=== PATIENT | male | born 1965 | race Caucasian/White ===

== ENCOUNTER 2017-09-24 13:12 | Inpatient (IN) | payer OTHER ==
[2017-09-24 13:44] LABS: ADD MAN DIFF? NO
[2017-09-24 13:46] LABS: BASOPHIL # 0.1 10^3/ul (0.0-0.1); BASOPHILS % 0.8 % (0.0-2.0); EOSINOPHILS # 0.7 10^3/ul (0.0-0.5); EOSINOPHILS % 9.8 % (0.0-7.0); HEMATOCRIT 36.2 % (42.0-52.0); HEMOGLOBIN 11.7 g/dl (14.0-18.0); LYMPHOCYTES # 1.7 10^3/ul (0.8-2.9); LYMPHOCYTES % 23.2 % (15.0-51.0); MEAN CORPUSCULAR HEMOGLOBIN 33.1 pg (29.0-33.0); MEAN CORPUSCULAR HGB CONC 32.3 g/dl (32.0-37.0); MEAN CORPUSCULAR VOLUME 102.3 fl (82.0-101.0); MEAN PLATELET VOLUME 11.5 fl (7.4-10.4); MONOCYTE # 0.5 10^3/ul (0.3-0.9); MONOCYTES % 6.7 % (0.0-11.0); NEUTROPHIL # 4.2 10^3/ul (1.6-7.5); NEUTROPHILS % 59.4 % (39.0-77.0); PLATELET COUNT 206 10^3/UL (140-415); RED BLOOD COUNT 3.54 10^6/ul (4.70-6.10); RED CELL DISTRIBUTION WIDTH 17.5 % (11.5-14.5)
[2017-09-24 13:46] LABS: WHITE BLOOD COUNT 7.2 10^3/ul (4.8-10.8)
[2017-09-24 14:03] LABS: ANION GAP 21 (8-16); BLOOD UREA NITROGEN 76 mg/dl (7-20); CALCIUM 7.3 mg/dl (8.4-10.2); CARBON DIOXIDE 27 mmol/L (21-31); CHLORIDE 100 mmol/L (97-110); CREATININE 13.18 mg/dl (0.61-1.24); GLUCOSE 126 mg/dl (70-220); MAGNESIUM 2.4 mg/dl (1.7-2.5); PHOSPHORUS 8.1 mg/dl (2.5-4.9); SODIUM 142 mmol/L (135-144)
[2017-09-24 14:08] LABS: POTASSIUM 6.3 mmol/L (3.5-5.1); PROTIME 14.4 Sec (11.9-14.9); PT RATIO 1.1
[2017-09-24 14:09] LABS: PARTIAL THROMBOPLASTIN TIME 30.9 Sec (25.0-35.0)
[2017-09-24] MEDS ORDERED: DEXTROSE 50% 50 ML SYRINGE IV (14:30)
[2017-09-24] MEDS: FUROSEMIDE 40 MG INJ IV (14:32)
[2017-09-24] MEDS: DEXTROSE 50% 50 ML SYRINGE IV (14:32)
[2017-09-24] MEDS: INSULIN REGULAR, HUMAN 100 UNIT/1 ML 3ML VIAL IVP (14:43)
[2017-09-24] MEDS ORDERED: morphine 2 MG INJ IV (15:00)
[2017-09-24] MEDS ORDERED: ACETAMINOPHEN 325 MG TAB PO (15:00)
[2017-09-24] MEDS ORDERED: DOCUSATE SODIUM 100 MG CAP PO (15:00)
[2017-09-24] MEDS ORDERED: NACL 0.9% 3 ML SYG IV (15:00)
[2017-09-24] MEDS ORDERED: MAGNESIUM HYDROXIDE 30ML CUP PO (15:00)
[2017-09-24] MEDS ORDERED: LORAZEPAM 0.5 MG TAB PO (15:00)
[2017-09-24] MEDS ORDERED: hydrALAzine 20 MG INJ IV (15:00)
[2017-09-24] MEDS ORDERED: HYDROCODONE/APAP (5/325) TAB PO (15:00)
[2017-09-24] MEDS ORDERED: ONDANSETRON 4 MG INJ IV (15:00)
[2017-09-24] MEDS ORDERED: BISACODYL (EC) 5 MG TAB PO (15:00)
[2017-09-24] MEDS: ALBUTEROL 0.5% (NEB) 2.5 MG/0.5 ML AMP INH (15:47)
[2017-09-24] MEDS: CALCIUM ACETATE 667 MG CAP PO (17:52)
[2017-09-25] MEDS: GABAPENTIN 100 MG CAP PO ×4 (00:25→22:09)
[2017-09-25] MEDS: ATORVASTATIN 20 MG TAB PO ×2 (00:26→22:08)
[2017-09-25] MEDS: METOPROLOL 50 MG TAB PO ×3 (00:28→22:09)
[2017-09-25 06:45] LABS: ADD MAN DIFF? NO
[2017-09-25 06:51] LABS: BASOPHILS % 0.5 % (0.0-2.0); EOSINOPHILS # 0.4 10^3/ul (0.0-0.5); EOSINOPHILS % 7.2 % (0.0-7.0); HEMOGLOBIN 11.1 g/dl (14.0-18.0); LYMPHOCYTES # 1.3 10^3/ul (0.8-2.9); LYMPHOCYTES % 22.7 % (15.0-51.0); MEAN CORPUSCULAR HEMOGLOBIN 33.3 pg (29.0-33.0); MEAN CORPUSCULAR HGB CONC 32.6 g/dl (32.0-37.0); MEAN CORPUSCULAR VOLUME 102.1 fl (82.0-101.0); MONOCYTE # 0.5 10^3/ul (0.3-0.9); MONOCYTES % 8.4 % (0.0-11.0); NEUTROPHIL # 3.5 10^3/ul (1.6-7.5); NEUTROPHILS % 60.8 % (39.0-77.0); PLATELET COUNT 165 10^3/UL (140-415); RED BLOOD COUNT 3.33 10^6/ul (4.70-6.10); RED CELL DISTRIBUTION WIDTH 17.7 % (11.5-14.5)
[2017-09-25 06:51] LABS: WHITE BLOOD COUNT 5.7 10^3/ul (4.8-10.8)
[2017-09-25 07:10] LABS: ALANINE AMINOTRANSFERASE 18 IU/L (13-69); ALBUMIN 4.2 g/dl (3.3-4.9); ALBUMIN/GLOBULIN RATIO 1.31; ALKALINE PHOSPHATASE 83 IU/L (42-121); ANION GAP 14 (8-16); ASPARTATE AMINO TRANSFERASE 10 IU/L (15-46); BILIRUBIN,INDIRECT 0.3 mg/dl (0-1.1); BILIRUBIN,TOTAL 0.3 mg/dl (0.2-1.3); BLOOD UREA NITROGEN 36 mg/dl (7-20); CALCIUM 7.8 mg/dl (8.4-10.2); CARBON DIOXIDE 30 mmol/L (21-31); CHLORIDE 102 mmol/L (97-110); CREATININE 7.93 mg/dl (0.61-1.24); GLUCOSE 99 mg/dl (70-220); MAGNESIUM 2.1 mg/dl (1.7-2.5); POTASSIUM 5.9 mmol/L (3.5-5.1); SODIUM 140 mmol/L (135-144); TOTAL PROTEIN 7.4 g/dl (6.1-8.1)
[2017-09-25] MEDS: CALCIUM ACETATE 667 MG CAP PO ×3 (08:19→18:05)
[2017-09-25] MEDS: NIFEdipine (XL) 30 MG TAB PO ×2 (08:20→22:09)
[2017-09-25] MEDS: ASPIRIN 81 MG TAB PO (08:21)
[2017-09-25] MEDS: FUROSEMIDE 40 MG TAB PO (08:22)
[2017-09-25] MEDS: NA POLYST SULFON 15 GM/60 ML BTL PO (08:22)
[2017-09-25 10:11] LABS: POTASSIUM 5.5 mmol/L (3.5-5.1)
[2017-09-25] MEDS ORDERED: morphine LIQ (10 MG/5 ML) CUP PO (15:30)
[2017-09-25 16:00] LABS: OCCULT BLOOD STOOL NEGATIVE (NEGATIVE)
[2017-09-25] MEDS: HEPARIN 1000 UNITS/ML 10 ML INJ CATHETER (19:09)
[2017-09-25 20:04] LABS: POTASSIUM 4.1 mmol/L (3.5-5.1)
[2017-09-26] MEDS: CALCIUM ACETATE 667 MG CAP PO ×2 (08:59→12:59)
[2017-09-26] MEDS: NIFEdipine (XL) 30 MG TAB PO (09:00)
[2017-09-26] MEDS: FUROSEMIDE 40 MG TAB PO (09:00)
[2017-09-26] MEDS: METOPROLOL 50 MG TAB PO (09:00)
[2017-09-26] MEDS: ASPIRIN 81 MG TAB PO (09:00)
[2017-09-26] MEDS: GABAPENTIN 100 MG CAP PO ×2 (09:00→13:01)
[2017-09-26 09:27] LABS: ADD MAN DIFF? NO
[2017-09-26 09:29] LABS: WHITE BLOOD COUNT 5.5 10^3/ul (4.8-10.8)
[2017-09-26 09:29] LABS: BASOPHIL # 0.1 10^3/ul (0.0-0.1); BASOPHILS % 0.9 % (0.0-2.0); EOSINOPHILS # 0.5 10^3/ul (0.0-0.5); EOSINOPHILS % 8.6 % (0.0-7.0); HEMATOCRIT 33.4 % (42.0-52.0); HEMOGLOBIN 10.7 g/dl (14.0-18.0); LYMPHOCYTES # 1.5 10^3/ul (0.8-2.9); MEAN CORPUSCULAR HEMOGLOBIN 33.1 pg (29.0-33.0); MEAN CORPUSCULAR VOLUME 103.4 fl (82.0-101.0); MEAN PLATELET VOLUME 11.8 fl (7.4-10.4); MONOCYTE # 0.6 10^3/ul (0.3-0.9); MONOCYTES % 10.4 % (0.0-11.0); NEUTROPHIL # 2.9 10^3/ul (1.6-7.5); NEUTROPHILS % 52.7 % (39.0-77.0); PLATELET COUNT 175 10^3/UL (140-415); RED BLOOD COUNT 3.23 10^6/ul (4.70-6.10); RED CELL DISTRIBUTION WIDTH 17.5 % (11.5-14.5)
[2017-09-26 09:39] LABS: HEMOGLOBIN A1C 5.5 % (0-5.9)
[2017-09-26 09:58] LABS: ANION GAP 14 (8-16); BLOOD UREA NITROGEN 34 mg/dl (7-20); CARBON DIOXIDE 28 mmol/L (21-31); CHLORIDE 104 mmol/L (97-110); CREATININE 6.95 mg/dl (0.61-1.24); GLUCOSE 95 mg/dl (70-220); PHOSPHORUS 5.8 mg/dl (2.5-4.9); POTASSIUM 4.7 mmol/L (3.5-5.1); SODIUM 141 mmol/L (135-144)
== END 2017-09-26 14:08 | disposition home or self-care (01) | DRG 640 ==
LOC: E/R 13:12 → MS4 14:17
PROC: 5A1D70Z Performance of Urinary Filtration, Intermittent, Less than 6 Hours Per Day (ICD-10-PCS; principal; 2017-09-24)
DX: E87.5 Hyperkalemia (principal); N18.6 End stage renal disease; I12.0 Hypertensive chronic kidney disease with stage 5 chronic kidney disease or end stage renal disease; D63.1 Anemia in chronic kidney disease; E83.39 Other disorders of phosphorus metabolism; E78.5 Hyperlipidemia, unspecified; Z99.2 Dependence on renal dialysis
CPT/HCPCS: 36415; 80048; 80053; 82270; 82962; 83036; 83735; 84100; 84132; 85025; 85610; 85730; 90935; 93005; 94664; 96374; 96375; 99291-25

== ENCOUNTER 2017-10-22 19:42 | Emergency (ER) | payer OTHER ==
[2017-10-22 21:12] LABS: ADD MAN DIFF? NO
[2017-10-22 21:14] LABS: BASOPHILS % 0.3 % (0.0-2.0); EOSINOPHILS # 0.5 10^3/ul (0.0-0.5); EOSINOPHILS % 3.9 % (0.0-7.0); HEMATOCRIT 34.4 % (42.0-52.0); HEMOGLOBIN 11.3 g/dl (14.0-18.0); LYMPHOCYTES # 1.4 10^3/ul (0.8-2.9); LYMPHOCYTES % 10.2 % (15.0-51.0); MEAN CORPUSCULAR HEMOGLOBIN 33.8 pg (29.0-33.0); MEAN CORPUSCULAR HGB CONC 32.8 g/dl (32.0-37.0); MEAN PLATELET VOLUME 10.6 fl (7.4-10.4); MONOCYTES % 7.5 % (0.0-11.0); NEUTROPHIL # 10.4 10^3/ul (1.6-7.5); NEUTROPHILS % 77.9 % (39.0-77.0); PLATELET COUNT 171 10^3/UL (140-415); RED BLOOD COUNT 3.34 10^6/ul (4.70-6.10); RED CELL DISTRIBUTION WIDTH 15.9 % (11.5-14.5)
[2017-10-22 21:14] LABS: WHITE BLOOD COUNT 13.3 10^3/ul (4.8-10.8)
[2017-10-22 21:32] LABS: ANION GAP 26 (8-16); BLOOD UREA NITROGEN 45 mg/dl (7-20); CALCIUM 8.4 mg/dl (8.4-10.2); CARBON DIOXIDE 25 mmol/L (21-31); CHLORIDE 94 mmol/L (97-110); CREATININE 8.01 mg/dl (0.61-1.24); GLUCOSE 80 mg/dl (70-220); POTASSIUM 3.8 mmol/L (3.5-5.1); SODIUM 141 mmol/L (135-144)
[2017-10-22] MEDS: LABETALOL HCL 20MG INJ IV (21:32)
[2017-10-22 21:43] LABS: TROPONIN-I < 0.010 ng/ml (0.000-0.120)
== END 2017-10-22 23:53 | disposition home or self-care (01) ==
LOC: E/R 19:42
DX: N18.6 End stage renal disease (principal); I16.0 Hypertensive urgency; R40.2142 Coma scale, eyes open, spontaneous, at arrival to emergency department; R40.2252 Coma scale, best verbal response, oriented, at arrival to emergency department; R40.2362 Coma scale, best motor response, obeys commands, at arrival to emergency department; R51 Headache; Z99.2 Dependence on renal dialysis; Z79.82 Long term (current) use of aspirin
CPT/HCPCS: 36415; 70450; 80048; 84484; 85025; 93005; 96374; 99285-25

== ENCOUNTER 2018-05-29 10:25 | Inpatient (IN) | payer OTHER ==
[2018-05-29 10:56] LABS: ADD MAN DIFF? NO
[2018-05-29 10:58] LABS: WHITE BLOOD COUNT 9.7 10^3/ul (4.8-10.8)
[2018-05-29 10:58] LABS: BASOPHILS % 0.3 % (0.0-2.0); EOSINOPHILS # 0.1 10^3/ul (0.0-0.5); EOSINOPHILS % 1.3 % (0.0-7.0); HEMATOCRIT 31.1 % (42.0-52.0); HEMOGLOBIN 9.8 g/dl (14.0-18.0); LYMPHOCYTES % 9.9 % (15.0-51.0); MEAN CORPUSCULAR HGB CONC 31.5 g/dl (32.0-37.0); MEAN CORPUSCULAR VOLUME 101.6 fl (82.0-101.0); MEAN PLATELET VOLUME 11.7 fl (7.4-10.4); MONOCYTE # 0.9 10^3/ul (0.3-0.9); MONOCYTES % 8.9 % (0.0-11.0); NEUTROPHIL # 7.6 10^3/ul (1.6-7.5); PLATELET COUNT 124 10^3/UL (140-415); RED BLOOD COUNT 3.06 10^6/ul (4.70-6.10)
[2018-05-29 11:19] LABS: ALANINE AMINOTRANSFERASE 21 IU/L (13-69); ALBUMIN 4.7 g/dl (3.3-4.9); ALBUMIN/GLOBULIN RATIO 1.34; ALKALINE PHOSPHATASE 86 IU/L (42-121); ANION GAP 27 (5-13); ASPARTATE AMINO TRANSFERASE 22 IU/L (15-46); CARBON DIOXIDE 19 mmol/L (21-31); CHLORIDE 99 mmol/L (97-110); GLUCOSE 136 mg/dl (70-220); INR 1.17; POTASSIUM 5.5 mmol/L (3.5-5.1); PT RATIO 1.2; SODIUM 145 mmol/L (135-144); TOTAL PROTEIN 8.2 g/dl (6.1-8.1)
[2018-05-29 11:20] LABS: PARTIAL THROMBOPLASTIN TIME 31.4 Sec (23.0-35.0)
[2018-05-29 11:28] LABS: BLOOD UREA NITROGEN 157 mg/dl (7-20); CREATININE 18.69 mg/dl (0.61-1.24); Estimated GFR 3 mL/min (>60)
[2018-05-29 11:46] LABS: TROPONIN-I 0.144 ng/ml (0.000-0.120)
[2018-05-29] MEDS ORDERED: SODIUM CHLORIDE 0.9% 1L BAG IV (14:00)
[2018-05-29 14:29] LABS: HEPATITIS B SURFACE ANTIGEN NEGATIVE (NEGATIVE)
[2018-05-29] MEDS: NIFEdipine (XL) 60 MG TAB PO ×2 (15:22→23:04)
[2018-05-29] MEDS ORDERED: ZOLPIDEM 5 MG TAB PO (15:30)
[2018-05-29] MEDS: CALCIUM ACETATE 667 MG CAP PO (18:00)
[2018-05-29] MEDS: HEPARIN 1000 UNITS/ML 10 ML INJ CATHETER (21:22)
[2018-05-29] MEDS: ATORVASTATIN 20 MG TAB PO (21:30)
[2018-05-29] MEDS: BACLOFEN 10 MG TAB PO (21:32)
[2018-05-29] MEDS: METOPROLOL 50 MG TAB PO (21:32)
[2018-05-29] MEDS: GABAPENTIN 100 MG CAP PO (21:33)
[2018-05-30] MEDS: hydrALAzine 20 MG INJ IV (00:44)
[2018-05-30] MEDS: ACETAMINOPHEN 325 MG TAB PO (00:51)
[2018-05-30 06:21] LABS: ADD MAN DIFF? NO
[2018-05-30 06:24] LABS: WHITE BLOOD COUNT 10.7 10^3/ul (4.8-10.8)
[2018-05-30 06:24] LABS: BASOPHILS % 0.3 % (0.0-2.0); EOSINOPHILS # 0.1 10^3/ul (0.0-0.5); EOSINOPHILS % 1.3 % (0.0-7.0); HEMATOCRIT 28.2 % (42.0-52.0); HEMOGLOBIN 9.1 g/dl (14.0-18.0); LYMPHOCYTES # 1.3 10^3/ul (0.8-2.9); LYMPHOCYTES % 12.4 % (15.0-51.0); MEAN CORPUSCULAR HEMOGLOBIN 32.3 pg (29.0-33.0); MEAN CORPUSCULAR HGB CONC 32.3 g/dl (32.0-37.0); MEAN PLATELET VOLUME 11.7 fl (7.4-10.4); MONOCYTE # 0.7 10^3/ul (0.3-0.9); MONOCYTES % 6.8 % (0.0-11.0); NEUTROPHIL # 8.4 10^3/ul (1.6-7.5); NEUTROPHILS % 78.7 % (39.0-77.0); PLATELET COUNT 125 10^3/UL (140-415); RED BLOOD COUNT 2.82 10^6/ul (4.70-6.10); RED CELL DISTRIBUTION WIDTH 14.2 % (11.5-14.5)
[2018-05-30 06:49] LABS: INR 1.29; PROTIME 16.2 Sec (11.9-14.9); PT RATIO 1.3
[2018-05-30 06:50] LABS: PARTIAL THROMBOPLASTIN TIME 37.4 Sec (23.0-35.0)
[2018-05-30 07:00] LABS: PHOSPHORUS 5.9 mg/dl (2.5-4.9)
[2018-05-30 07:00] LABS: MAGNESIUM 2.1 mg/dl (1.7-2.5)
[2018-05-30 07:03] LABS: ALANINE AMINOTRANSFERASE 20 IU/L (13-69); ALBUMIN 3.8 g/dl (3.3-4.9); ALBUMIN/GLOBULIN RATIO 1.18; ALKALINE PHOSPHATASE 65 IU/L (42-121); ANION GAP 12 (5-13); ASPARTATE AMINO TRANSFERASE 24 IU/L (15-46); BILIRUBIN,INDIRECT 0.1 mg/dl (0-1.1); BILIRUBIN,TOTAL 0.1 mg/dl (0.2-1.3); BLOOD UREA NITROGEN 63 mg/dl (7-20); CALCIUM 8.5 mg/dl (8.4-10.2); CARBON DIOXIDE 31 mmol/L (21-31); CHLORIDE 98 mmol/L (97-110); CREATININE 10.36 mg/dl (0.61-1.24); Estimated GFR 5 mL/min (>60); GLUCOSE 96 mg/dl (70-220); POTASSIUM 4.3 mmol/L (3.5-5.1); SODIUM 141 mmol/L (135-144)
[2018-05-30] MEDS: NIFEdipine (XL) 60 MG TAB PO ×2 (09:00→21:31)
[2018-05-30] MEDS: GABAPENTIN 100 MG CAP PO ×3 (09:18→21:32)
[2018-05-30] MEDS: CALCIUM ACETATE 667 MG CAP PO ×3 (09:20→18:00)
[2018-05-30] MEDS: ASPIRIN (EC) 81 MG TAB PO (09:20)
[2018-05-30] MEDS: FUROSEMIDE 40 MG TAB PO (09:22)
[2018-05-30] MEDS: ALBUMIN HUMAN 25% 100 ML IV (18:10)
[2018-05-30] MEDS: HEPARIN 1000 UNITS/ML 10 ML INJ CATHETER (20:06)
[2018-05-30] MEDS: METOPROLOL 50 MG TAB PO (21:32)
[2018-05-30] MEDS: BACLOFEN 10 MG TAB PO (21:32)
[2018-05-30] MEDS: ATORVASTATIN 20 MG TAB PO (21:32)
[2018-05-31] MEDS: NIFEdipine (XL) 60 MG TAB PO ×2 (07:44→21:16)
[2018-05-31] MEDS: CALCIUM ACETATE 667 MG CAP PO ×3 (09:05→17:35)
[2018-05-31] MEDS: GABAPENTIN 100 MG CAP PO ×3 (09:05→21:17)
[2018-05-31] MEDS: FUROSEMIDE 40 MG TAB PO (09:06)
[2018-05-31] MEDS: ASPIRIN (EC) 81 MG TAB PO (09:06)
[2018-05-31] MEDS: ALBUMIN HUMAN 25% 100 ML IV (09:49)
[2018-05-31] MEDS: HEPARIN 1000 UNITS/ML 10 ML INJ CATHETER (11:12)
[2018-05-31] MEDS: ONDANSETRON 4 MG INJ IV (12:49)
[2018-05-31 13:15] LABS: AADO2 Arterial 41.4 mmHg (7.0-24.0); Allen Test ACCEPTAB; Arterial Base Excess 5.2 mmol/L (-3.0-3); Arterial Blood Gas Oxygen Sat 86.2 mmHG (95.0-98.0); Arterial Fraction of Oxyhgb 85.1 % (93.0-99.0); Arterial HCO3 30.4 mmol/L (22.0-26.0); Arterial MetHb 0.3 % (0.0-1.5); Arterial pCO2 47.1 mmhg (35-45); MODE ROOM AIR; Site Right Radial
[2018-05-31] MEDS: ATORVASTATIN 20 MG TAB PO (21:14)
[2018-05-31] MEDS: BACLOFEN 10 MG TAB PO (21:17)
[2018-05-31] MEDS: METOPROLOL 50 MG TAB PO (21:17)
[2018-06-01] MEDS: CALCIUM ACETATE 667 MG CAP PO ×3 (08:25→17:55)
[2018-06-01] MEDS: ASPIRIN (EC) 81 MG TAB PO (08:25)
[2018-06-01] MEDS: GABAPENTIN 100 MG CAP PO ×3 (08:25→21:25)
[2018-06-01] MEDS: FUROSEMIDE 40 MG TAB PO (08:25)
[2018-06-01] MEDS: NIFEdipine (XL) 60 MG TAB PO (08:26)
[2018-06-01] MEDS: ONDANSETRON 4 MG INJ IV (08:28)
[2018-06-01] MEDS: ALBUMIN HUMAN 25% 100 ML IV ×2 (10:55→12:07)
[2018-06-01] MEDS: HEPARIN 1000 UNITS/ML 10 ML INJ CATHETER (13:37)
[2018-06-01] MEDS: METOPROLOL 25 MG TAB PO (21:00)
[2018-06-01] MEDS: BACLOFEN 10 MG TAB PO (21:25)
[2018-06-01] MEDS: ATORVASTATIN 20 MG TAB PO (21:25)
[2018-06-01] MEDS: NIFEdipine (XL) 30 MG TAB PO (21:25)
[2018-06-02 05:54] LABS: ADD MAN DIFF? NO
[2018-06-02 06:03] LABS: BASOPHIL # 0.1 10^3/ul (0.0-0.1); BASOPHILS % 0.5 % (0.0-2.0); EOSINOPHILS # 1.5 10^3/ul (0.0-0.5); EOSINOPHILS % 15.8 % (0.0-7.0); HEMATOCRIT 35.7 % (42.0-52.0); HEMOGLOBIN 11.3 g/dl (14.0-18.0); LYMPHOCYTES % 21.1 % (15.0-51.0); MEAN CORPUSCULAR HEMOGLOBIN 32.4 pg (29.0-33.0); MEAN CORPUSCULAR HGB CONC 31.7 g/dl (32.0-37.0); MEAN CORPUSCULAR VOLUME 102.3 fl (82.0-101.0); MEAN PLATELET VOLUME 11.3 fl (7.4-10.4); MONOCYTE # 1.3 10^3/ul (0.3-0.9); MONOCYTES % 13.1 % (0.0-11.0); NEUTROPHIL # 4.8 10^3/ul (1.6-7.5); NEUTROPHILS % 49.2 % (39.0-77.0); PLATELET COUNT 213 10^3/UL (140-415); RED BLOOD COUNT 3.49 10^6/ul (4.70-6.10); RED CELL DISTRIBUTION WIDTH 13.3 % (11.5-14.5)
[2018-06-02 06:03] LABS: WHITE BLOOD COUNT 9.7 10^3/ul (4.8-10.8)
[2018-06-02 06:51] LABS: ANION GAP 19 (5-13); BLOOD UREA NITROGEN 54 mg/dl (7-20); CALCIUM 9.7 mg/dl (8.4-10.2); CARBON DIOXIDE 25 mmol/L (21-31); CHLORIDE 99 mmol/L (97-110); CREATININE 6.39 mg/dl (0.61-1.24); Estimated GFR 9 mL/min (>60); GLUCOSE 156 mg/dl (70-220); POTASSIUM 4.9 mmol/L (3.5-5.1); SODIUM 143 mmol/L (135-144)
[2018-06-02] MEDS: CALCIUM ACETATE 667 MG CAP PO ×3 (08:23→17:43)
[2018-06-02] MEDS: NIFEdipine (XL) 30 MG TAB PO ×2 (08:24→20:07)
[2018-06-02] MEDS: GABAPENTIN 100 MG CAP PO ×3 (08:24→20:06)
[2018-06-02] MEDS: ASPIRIN (EC) 81 MG TAB PO (08:24)
[2018-06-02] MEDS: FUROSEMIDE 40 MG TAB PO (08:25)
[2018-06-02] MEDS: BACLOFEN 10 MG TAB PO (20:06)
[2018-06-02] MEDS: METOPROLOL 25 MG TAB PO (20:06)
[2018-06-02] MEDS: ATORVASTATIN 20 MG TAB PO (20:06)
== END 2018-06-02 20:20 | disposition home or self-care (01) | DRG 640 ==
LOC: E/R 10:25 → 6WM 12:44
PROC: 5A1D70Z Performance of Urinary Filtration, Intermittent, Less than 6 Hours Per Day (ICD-10-PCS; principal; 2018-05-29)
DX: E87.70 Fluid overload, unspecified (principal); N18.6 End stage renal disease; I12.0 Hypertensive chronic kidney disease with stage 5 chronic kidney disease or end stage renal disease; J81.1 Chronic pulmonary edema; E87.2 Acidosis; Z99.2 Dependence on renal dialysis; Z91.15 Patient's noncompliance with renal dialysis; E78.5 Hyperlipidemia, unspecified; E87.5 Hyperkalemia; R09.02 Hypoxemia
CPT/HCPCS: 36415; 36600; 71045; 71250; 80048; 80053; 82803; 83735; 84100; 84484; 85025; 85610; 85730; 86850; 86900; 86901; 87040; 87340; 90935; 93005; 93306; 99291-25

== ENCOUNTER 2018-11-09 14:08 | Emergency (ER) | payer MEDICAID, OTHER ==
[2018-11-09 15:53] LABS: ADD MAN DIFF? NO
[2018-11-09 15:57] LABS: WHITE BLOOD COUNT 5.2 10^3/ul (4.8-10.8)
[2018-11-09 15:57] LABS: ABNORMAL IP MESSAGE 1; BASOPHILS % 0.6 % (0.0-2.0); EOSINOPHILS # 0.5 10^3/ul (0.0-0.5); EOSINOPHILS % 9.4 % (0.0-7.0); HEMATOCRIT 28.4 % (42.0-52.0); HEMOGLOBIN 9.5 g/dl (14.0-18.0); LYMPHOCYTES # 1.2 10^3/ul (0.8-2.9); LYMPHOCYTES % 23.7 % (15.0-51.0); MEAN CORPUSCULAR HEMOGLOBIN 31.3 pg (29.0-33.0); MEAN CORPUSCULAR HGB CONC 33.5 g/dl (32.0-37.0); MEAN CORPUSCULAR VOLUME 93.4 fl (82.0-101.0); MEAN PLATELET VOLUME 10.7 fl (7.4-10.4); MONOCYTE # 0.7 10^3/ul (0.3-0.9); MONOCYTES % 13.9 % (0.0-11.0); NEUTROPHIL # 2.7 10^3/ul (1.6-7.5); NEUTROPHILS % 52.2 % (39.0-77.0); PLATELET COUNT 94 10^3/UL (140-415); POSITIVE DIFF @See below; RED BLOOD COUNT 3.04 10^6/ul (4.70-6.10); RED CELL DISTRIBUTION WIDTH 14.5 % (11.5-14.5)
[2018-11-09 16:15] LABS: ANION GAP 8 (5-13); BLOOD UREA NITROGEN 30 mg/dl (7-20); CALCIUM 8.7 mg/dl (8.4-10.2); CARBON DIOXIDE 36 mmol/L (21-31); CHLORIDE 92 mmol/L (97-110); CREATININE 5.91 mg/dl (0.61-1.24); Estimated GFR 10 mL/min (>60); GLUCOSE 133 mg/dl (70-220); POTASSIUM 3.9 mmol/L (3.5-5.1); SODIUM 136 mmol/L (135-144)
[2018-11-09 16:17] LABS: INR 1.02; PROTIME 13.5 Sec (11.9-14.9); PT RATIO 1.1
[2018-11-09 16:18] LABS: PARTIAL THROMBOPLASTIN TIME 29.8 Sec (23.0-35.0)
[2018-11-09] MEDS: METOCLOPRAMIDE 10 MG INJ IV (16:49)
[2018-11-09] MEDS: ACETAMINOPHEN 500 MG TAB PO (17:07)
== END 2018-11-09 17:48 | disposition home or self-care (01) ==
LOC: FTE 14:08 → E/R 17:48
DX: I16.0 Hypertensive urgency (principal); I10 Essential (primary) hypertension; Z79.82 Long term (current) use of aspirin
CPT/HCPCS: 36415; 70450; 80048; 85025; 85610; 85730; 93005; 96374; 99285-25